=== PATIENT | female | born 2000 | race African-American/Black ===

== ENCOUNTER 2019-07-16 09:06 | Emergency (ER) | payer MEDICAID, MEDICARE ==
[~2019-07-16] VITALS: Ht 170.2 cm; Wt 78.0 kg
[2019-07-16] MEDS ORDERED: IPRATROPIUM BROMIDE (0.02%) 0.5MG/2.5ML NEB HHN STA (10:25)
[2019-07-16] MEDS ORDERED: ALBUTEROL (0.083%) 2.5MG/3ML NEB HHN STA (10:25)
[2019-07-16] MEDS ORDERED: SODIUM CHLORIDE 0.9% 1,000 ML IV ONE (10:25)
[2019-07-16] MEDS ORDERED: ONDANSETRON 4MG ODT PO ONE (10:30)
[2019-07-16 10:58] VITALS: BP 118/70
[2019-07-16 11:11] LABS: CLARITY URINE CLEAR (CLEAR); COLOR URINE YELLOW (YELLOW); KETONES URINE TRACE (NEGATIVE); LEUKOCYTE ESTERASE URINE NEGATIVE (NEGATIVE); NITRITE URINE NEGATIVE (NEGATIVE); OCCULT BLOOD URINE NEGATIVE (NEGATIVE); PH URINE 5.5 (4.5-8.0); PROTEIN URINE NEGATIVE (NEGATIVE); SPECIFIC GRAVITY URINE 1.032 (1.005-1.030)
== END 2019-07-16 11:58 | disposition left against medical advice (07) ==
LOC: ER 09:06
DX: R11.10 Vomiting, unspecified (principal); J45.909 Unspecified asthma, uncomplicated
CPT/HCPCS: 71045; 81003; 81025; 94640; 99284; J7030; J7611; Q0162; Z7610

== ENCOUNTER 2019-12-19 14:47 | Emergency (ER) | payer MEDICAID, MEDICARE ==
[~2019-12-19] VITALS: Ht 167.6 cm; Wt 75.0 kg
[2019-12-19] MEDS ORDERED: IPRATROPIUM BROMIDE (0.02%) 0.5MG/2.5ML NEB HHN STA (15:24)
[2019-12-19] MEDS ORDERED: PREDNISONE 20MG TABLET PO STA (15:24)
[2019-12-19] MEDS ORDERED: ALBUTEROL (0.083%) 2.5MG/3ML NEB HHN STA (15:24)
[2019-12-19] MEDS ORDERED: ACETAMINOPHEN 325MG TABLET PO ONE (15:30)
[2019-12-19] MEDS ORDERED: ALBUTEROL 6.7GM HFA INHALER ORI PRN (16:00)
[2019-12-19 16:50] VITALS: BP 138/80
== END 2019-12-19 17:07 | disposition home or self-care (01) ==
LOC: ER 14:47
DX: J45.901 Unspecified asthma with (acute) exacerbation (principal); F12.10 Cannabis abuse, uncomplicated
CPT/HCPCS: 71045; 94640; 99283; J7512; Z7610

== ENCOUNTER 2020-01-29 13:40 | Emergency (ER) | payer MEDICAID, MEDICARE ==
[~2020-01-29] VITALS: Ht 160 cm; Wt 68.0 kg
[2020-01-29] MEDS ORDERED: MORPHINE SULFATE 4 MG/ML CPJ (NOT FOR IM USE) IV STA (15:00)
[2020-01-29] MEDS ORDERED: SODIUM CHLORIDE 0.9% 1,000 ML IV ONE (15:00)
[2020-01-29] MEDS ORDERED: ONDANSETRON HCL 4MG/2ML INJ IV STA (15:00)
[2020-01-29 15:39] LABS: CLARITY URINE CLEAR (CLEAR); COLOR URINE YELLOW (YELLOW); KETONES URINE NEGATIVE (NEGATIVE); LEUKOCYTE ESTERASE URINE NEGATIVE (NEGATIVE); NITRITE URINE NEGATIVE (NEGATIVE); OCCULT BLOOD URINE NEGATIVE (NEGATIVE); PH URINE 6.5 (4.5-8.0); PROTEIN URINE NEGATIVE (NEGATIVE); SPECIFIC GRAVITY URINE 1.005 (1.005-1.030); UROBILINOGEN URINE 0.2 E.U./dL (0.2-1.0)
[2020-01-29] MEDS ORDERED: ACETAMINOPHEN 500MG TABLET PO ONE (16:15)
[2020-01-29] MEDS ORDERED: ONDANSETRON 4MG ODT PO ONE (16:15)
[2020-01-29 17:09] VITALS: BP 133/59
== END 2020-01-29 17:25 | disposition left against medical advice (07) ==
LOC: ER 13:40
DX: J45.909 Unspecified asthma, uncomplicated (principal); R11.2 Nausea with vomiting, unspecified
CPT/HCPCS: 81003; 81025; 99283; J7030; Q0162

== ENCOUNTER 2020-09-16 20:05 | Emergency (ER) | payer MEDICAID, MEDICARE ==
[~2020-09-16] VITALS: Ht 167.6 cm; Wt 73.0 kg
[2020-09-16] MEDS ORDERED: MAGNESIUM/ALUMINUM HYDROXIDE/SIMETHICONE 30ML UDC PO ONE (21:15)
[2020-09-16] MEDS ORDERED: SODIUM CHLORIDE 0.9% 1,000 ML IV ONE (21:15)
[2020-09-16] MEDS ORDERED: METOCLOPRAMIDE HCL 10MG/2ML VIAL IV ONE (21:15)
[2020-09-16] MEDS ORDERED: ACETAMINOPHEN 325MG TABLET PO ONE (21:15)
[2020-09-16] MEDS ORDERED: FAMOTIDINE 20MG/2ML VIAL IV ONE (21:15)
[2020-09-16] MEDS ORDERED: ONDANSETRON 4MG ODT PO ONE (21:45)
[2020-09-17] MEDS ORDERED: KETOROLAC 60MG/2ML VIAL IM ONE
[2020-09-17] MEDS ORDERED: ONDANSETRON 4MG ODT PO ONE (00:15)
[2020-09-17 01:08] LABS: CLARITY URINE CLEAR (CLEAR); COLOR URINE DARK YELLOW (YELLOW); KETONES URINE NEGATIVE (NEGATIVE); LEUKOCYTE ESTERASE URINE 1+ (NEGATIVE); NITRITE URINE POSITIVE (NEGATIVE); OCCULT BLOOD URINE 2+ (NEGATIVE); PROTEIN URINE 1+ (NEGATIVE); SPECIFIC GRAVITY URINE 1.014 (1.005-1.030); UROBILINOGEN URINE 0.2 E.U./dL (0.2-1.0)
[2020-09-17] MEDS ORDERED: DOXYCYCLINE HYCLATE 100MG CAPSULE PO ONE (01:30)
[2020-09-17] MEDS ORDERED: CEFTRIAXONE SODIUM 500 MG/VIAL IM ONE (01:30)
[2020-09-17] MEDS ORDERED: DOXY150T9 MT (01:33)
[2020-09-17] MEDS ORDERED: CEFI400C PO (01:33)
[2020-09-17] MEDS ORDERED: ONDA4TAB5 MT (01:35)
[2020-09-17 01:39] VITALS: BP 125/77
== END 2020-09-17 01:47 | disposition left against medical advice (07) ==
LOC: ER 20:05
DX: N39.0 Urinary tract infection, site not specified (principal); Z20.2 Contact with and (suspected) exposure to infections with a predominantly sexual mode of transmission; J45.909 Unspecified asthma, uncomplicated
CPT/HCPCS: 76856; 81003; 81025; 87077; 87086; 87186; 99284; J0696; J1885; J7030; Q0162